=== PATIENT | female | born 1960 | race Caucasian/White ===

== ENCOUNTER 2020-05-15 02:53 | Emergency (ER) | payer OTHER ==
[~2020-05-15] VITALS: Ht 177.8 cm; Wt 106.6 kg
[~2020-05-15 02:53] MED LIST: ADVAIR 100-501 EACH INH; CELEXA20 MG; COZAAR 50 MG TA50 M2; DOXYCYCLINE 10100 M1 PO; LOW DOSE ASPIRI81 M1 PO; MICARDIS 80 MG80 MG PO; NAPROXEN250 MG PO; NORCO 5-325 TA1 EACH PO; TAMIFLU75 MG PO; TESSALON PERLE100 M1 PO; TUSSIONEX PENN473 ML PO; XANAX; XANAX 0.5 MG0.5 M1 PO; ZPAK PO
[2020-05-15] MEDS ORDERED: ATENOLOL-CHLOR1 EACH PO (03:04)
[2020-05-15] MEDS ORDERED: ASA81BEC PO (03:04)
[2020-05-15] MEDS ORDERED: HYDROCODON-ACE1 EAC8 PO (04:28)
[2020-05-15] MEDS ORDERED: FLEXERIL PO (04:28)
[2020-05-15 04:46] VITALS: BP 142/86
== END 2020-05-15 04:48 | disposition home or self-care (01) ==
LOC: M.ERS 02:53
DX: M62.830 Muscle spasm of back (principal); I10 Essential (primary) hypertension; G89.29 Other chronic pain

== ENCOUNTER → 2021-01-28 | Outpatient (CLI) | payer OTHER ==
[~2021-01-28] MED LIST changes: +ASA81BEC PO; +ATENOLOL-CHLOR1 EACH PO; +FLEXERIL PO; +HYDROCODON-ACE1 EAC8 PO
== END ==
LOC: M.LAB 07:53
PROVIDERS: ATTEND Anesthesiology
DX: Z01.812 Encounter for preprocedural laboratory examination (principal); Z20.822 Contact with and (suspected) exposure to COVID-19; E87.6 Hypokalemia